=== PATIENT | male | born 1985 | race Two or more races ===

== ENCOUNTER 2021-11-23 15:26 | Outpatient (REF) | payer OTHER, SELFPAY ==
[2021-11-23 16:23] LABS: Alanine Aminotransferase 15 U/L (0-40); Albumin Level 4.5 g/dL (3.5-5.0); Alkaline Phosphatase 76 U/L (39-117); Aspartate Amino Transferase 16 U/L (5-37); Bilirubin Direct < 0.2 mg/dL (0.0-0.5); Bilirubin Total 0.3 mg/dL (0.0-1.0); Total Protein 7.1 g/dL (6.5-8.0)
[2021-11-23 16:28] LABS: Valproate 23.5 mcg/mL (50.0-100.0)
== END 2021-11-23 15:27 | disposition home or self-care (01) ==
LOC: HO.LAB 15:26
PROVIDERS: Visit Provider Psychiatry & Neurology Neurology
DX: G40.909 Epilepsy, unspecified, not intractable, without status epilepticus (principal); Z79.899 Other long term (current) drug therapy
CPT/HCPCS: 36415; 80076; 80164

== ENCOUNTER 2025-02-12 12:34 | Outpatient (AMB) | payer OTHER, SELFPAY ==
--- OUTSIDE RECORDS SUMMARY | 2023-12-27 12:26 | XMS_ITS | Encounter Summary ---
Author Organization [facility] Address [address] [place] [address] Care Team Providers Care Child Care Associate Name Role Phone Unavailable Primary Care Provider Unavailabl e Encounter Details Date Type Department Care Team (Latest Contact Info) Description 12/27/2023 1:26 PM EDT Hospital Encounter TH HISTORIC ENCOUNTERS EASTERN CONVERSION ONLY Tiffany Xie MD [address], [place] [id number] Other specified deforming dorsopathies, lumbar region Social History Tobacco Use Types Packs/Day Years Used Date Smoking Tobacco: Never Assessed Sex and Gender Information Value Date Recorded Sex Assigned at Not on file Legal Sex Male 8:13 PM EST Gender Identity Not on file Sexual Orientation Not on file documented as of this encounter Plan of Treatment Not on file documented as of this encounter Procedures Procedure Name Priority Date/Time Associated Diagnosis Comments CR SPINE LUMBAR W OBLIQ MIN 4V Routine 12/27/2023 2:45 PM EDT Other specified deforming dorsopathies, lumbar region documented in this encounter Results * CR SPINE LUMBAR W OBLIQ MIN 4V (12/27/2023 2:45 PM EDT) Anatomical Region Laterality Modality Radiographic Lily ging 12/27/2023 1:35 PM EDT Narrative 12/27/2023 2:45 PM EDT [facility] Diagnostic Imaging Department [address], [place] [id number] Patient: ALESSANDRO BURTON /Age/Sex: 1985 - 38 - M Unit#: [id number] Location/Status: SPDIGEN/REG CLI Mnemonic/Ordering Site: SPINLUMWOB/SPDI Ordering Physician: TIFFANY XIE MD CR Spine Lumbar W Obliq min 4v - 12/27/23 - 1402 Report Status:Signed EXAMINATION: LUMBAR SPINE CLINICAL INFORMATION: Pain for 7 days. No history of trauma COMPARISON: None. TECHNIQUE: Frontal, lateral, both oblique views of the lumbar spine and coned down view of the lumbosacral junction FINDINGS: There are 5 intact lumbar type vertebrae. No fracture, suspicious focal lesion or significant loss of volume. The pedicles appear intact. There is no pars defect. The disc spaces appear maintained. No significant osteophyte. Convex right lumbar curve. No suspicious paraspinal abnormality IMPRESSION: Lumbar curve without fracture, subluxation or focal lesion. No significant disc narrowing Dictating Physician: Roberto CUMMINS BRET MD Electronically Signed by: Roberto CUMMINS BRET MD Dic Date/Time: 12/27/23 1443 Sign date/Time: 12/27/23 1445 Procedure Note En Cummins MD - 01/23/2024 [facility] Diagnostic Imaging Department [address] [place], [place] [id number] Patient: ALESSANDRO BURTON /Age/Sex: 1985 - 38 - M Unit#: [id number] Location/Status: SPDIGEN/REG CLI Mnemonic/Ordering Site: SPINLUMWOB/SPDI Ordering Physician: TIFFANY XIE MD CR Spine Lumbar W Obliq min 4v - 12/27/23 - 1402 Report Status:Signed EXAMINATION: LUMBAR SPINE CLINICAL INFORMATION: Pain for 7 days. No history of trauma COMPARISON: None. TECHNIQUE: Frontal, lateral, both oblique views of the lumbar spine and coned downview of the lumbosacral junction FINDINGS: There are 5 intact lumbar type vertebrae. No fracture, suspicious focallesion or significant loss of volume. The pedicles appear intact. There is nopars defect. The disc spaces appear maintained. No significant osteophyte.Convex right lumbar curve. No suspicious paraspinal abnormality IMPRESSION: Lumbar curve without fracture, subluxation or focal lesion. No significantdisc narrowing Dictating Physician: Roberto CUMMINS BRET MD Electronically Signed by: Roberto CUMMINS BRET MD Dic Date/Time: 12/27/23 1443 Sign date/Time: 12/27/23 1445 Tiffany Xie MD IMG XR PROCEDURES Final Re sult documented in this encounter Visit Diagnoses Diagnosis Other specified deforming dorsopathies, lumbar region documented in this encounter
--- NOTE | 2025-02-12 12:24 | MHC.OFFVIS ---
Intake Visit Reasons: 1 yr sz Allergies No Known Allergies Allergy (Verified 11/05/24 08:18) Medication List - Last Reconciled 02/12/25 by Kayli Epstein MD HPI Comments Details: This is a 39-year-old man with a history of epilepsy. He has had seizures for about 10 years in which he passes out, bites his tongue and shakes all over and then is sore all over for a few days at a time. He was being treated in [place] and has had previous scans of the brain and EEG and was on Depakene 200 mg twice a day for 4 years. 5 years ago the doctor in [place] told him that the tests look normal and that he did not need to continue his medicines. He was irregular taking it in any case. He was told to make sure that he does not take stimulants and gets enough sleep. He notices that if he does not get 8 hours or more asleep he can have a seizure. He cannot give me an exact count of his seizures since he came off the medicine because of some language restrictions. Last Sz was in August 2021. He has had 2 seizures or major convulsive seizure and one that was milder. He still continues to drive and has 3 small children who he drives around. His does not drive. His recent EEG done on October 05, 2023 shows generalized epileptiform discharges, some of which seemed to originate in the right hemisphere. He is currently on Depakote 250mg 2 hs. He colindres sdeveliped some pancreatic problems in the spring and was told he has Crohn's disease in October and is being treated with infusions. They have suggested that the Depakote be changed to another AED. [facility] Medical History (Updated 02/12/25 @ 12:30 by Kayli Epstein MD) Anxiety Seizure disorder Review of Systems Const Details: Sleep:? Difficulty getting to sleep?denies.? Difficulty maintaining sleep?admits.? Urge to move legs?denies.? Teeth grinding?admits.? Shouting or Kicking during sleep?denies.? Abnormal behavior during sleep?denies.? Excessive sleep?denies.? Snoring?denies.? Daytime sleepiness?denies.? ?? General/Constitutional:? Change in appetite?denies.? Chills?denies.? Fatigue?denies.? Fever?denies.? Weight gain?denies.? Weight loss?denies.? ?? Ophthalmologic:? Blurred vision?denies.? Diminished visual acuity?denies.? ?? ENT:? Stuffiness?denies.? Decreased hearing?denies.? Dry mouth?denies.? Ear pain?denies.? Nosebleed?denies.? Ringing in the ears?denies.? Sinus pain?denies.? Sore throat?denies.? Swollen glands?denies.? ?? Endocrine:? Cold intolerance?denies.? Excessive thirst?denies.? Frequent urination?denies.? Heat intolerance?denies.? ?? Respiratory:? Shortness of breath?denies.? Chest pain?denies.? Cough?denies.? ?? Breast:? Breast lump?denies.? Nipple discharge?denies.? ?? Cardiovascular:? Chest pain at rest?denies.? Chest pain with exertion?denies.? Claudication?denies.? Dizziness?denies.? Fluid accumulation in the legs?denies.? Irregular heartbeat?denies.? Palpitations?denies.? ?? Gastrointestinal:? Abdominal pain?denies.? Constipation?denies.? Diarrhea?denies.? Difficulty swallowing?denies.? Heartburn?denies.? Nausea?denies.? Rectal bleeding?denies.? ?? Hematology:? Easy bruising?denies.? Prolonged bleeding?denies.? ?? Genitourinary:? Frequent urination?denies.? Urgency?denies.? Incontinence?denies.? Erectile Dysfunction?denies.? ?? Musculoskeletal:? Neck pain?admits.? Back pain?admits.? Muscle aches?admits.? Painful joints?admits.? Sciatica?denies.? Weakness?denies.? ?? Podiatric:? Difficulty walking?denies.? Foot numbness?denies.? ?? Neurologic:? Difficulty swallowing?denies.? Balance difficulty?admits.? Coordination?normal.? Difficulty speaking?denies.? Dizziness?admits.? Fainting?admits.? Gait abnormality?denies.? Headache?denies.? Loss of strength?denies.? Loss of use of extremity?denies.? Low back pain?denies.? Memory loss?denies.? Seizures?admits.? Tics?denies.? Tingling/Numbness?denies.? Transient loss of vision?denies.? Tremor?denies.? ?? Psychiatric:? Anxiety?denies.? Auditory/visual hallucinations?denies.? Delusions?denies.? Depressed mood?denies.? Stressors?denies.? Substance abuse?denies.? Suicidal thoughts?denies.? ? Physical Exam Neuro Other: Neurological: ? Abnormal neurological findings:?slight tremors of extended upper extremities.? Mental Status:?alert and oriented X 3,?Normal attention, orientation, memory and affect.? Cranial Nerves:?Pupils are equal, round and reactive to light. Fundoscopy shows normal disc bilaterally. External occular muscles are intact. Visual wilson are full, no ptosis. Face is symmetrical, no facial weakness or droop. Facial sensations are normal. Tongue protrudes in midline. Palate elevates symmetrically. Shoulder shrugging is normal..? Motor Examination:?Normal muscle tone, bulk and strength,?No atrophy or fasciculations,?No drift of the extended upper extremities,?Deep tendon reflexes are 2+?,?Plantars are flexor?.? Straight Leg Raising:?90 degrees.? Sensory Exam:?Normal light touch, temperature, pinprick, vibration and joint-position sensations?,?Rhomberg sign is absent.? Coordination:?no ataxia,?no titubation,?gubxkl-[id number], qqjj-akfd-zutq test and rapid alternating movements were normal.? Gait Exam:?Within normal limits.? Cerebellar Signs:?[id number]-cy-lwpz and vxdm-ob-btdh is normal,?no dysdiadochokinesia?.? Extrapyramidal System:?No tremor, rigidity with normal facial expressions,?No bradykinesia, no bradyphrenia. Normal arm swing and posture. No propulsion or retropulsion.? Speech:?Normal,?no dysphasia or dysarthria..? Mini Mental Status Exam: ? Level of Consciousness:?Alert.? Orientation:?Knows correct year, month, date, day and season,?Knows correct city, county and state. Knows correct location and floor.? Registration:?Able to register 3 objects.? Attention:?Serial 7's performed accurately.? Recall:?Able to recall 3 out of 3 objects.? Language:?Normal spontaneous speech, fluency, repetition,naming, comprehension, reading and writing.? Total Score:?30/30.? Assessment & Plan Assessment & Plan (1) Seizure disorder: Comment: 2018 MRI brain normal. 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 Code(s): G40.909 - Epilepsy, unspecified, not intractable, without status epilepticus Category: Medical (2) Anxiety: Code(s): F41.9 - Anxiety disorder, unspecified Category: Medical Plan He will taper off his Depakote because of the concerns about the pancreas. He will start levetiracetam 500 mg b.i.d.. Medications: New levetiracetam 500 mg PO BID 180 tabs 3RF 90 days Coding Level of Care Code Est Pt Level 4 (03572) Diagnoses Seizure disorder G40.909 Anxiety F41.9
--- OUTSIDE RECORDS SUMMARY | 2025-02-12 23:49 | XMS_ITS | Clinical Summary ---
Author Organization [facility] Address [address] [place] [address] Phone Care Team Providers Care Ctrs Name Role Phone Pillo Souza Primary Care Provider [phone] Social History Tobacco Use Types Packs/Day Years Used Date Smoking Tobacco: Never Assessed Sex and Gender Information Value Date Recorded Sex Assigned at Not on file Legal Sex Male 8:13 PM EST Gender Identity Not on file Sexual Orientation Not on file Plan of Treatment Health Maintenance Due Date Last Done Comments Hepatitis B Vaccines (1 of 3 - 19+ 3-dose series) 2005 HPV Vaccines (1 - 3-dose SCD M series) 2013 HIV Screening 02/26/2022 Social Influencers of Health Screening 02/26/2022 Depression Screening 03/27/2024 COVID-19 Vaccine (1 - 2024-2 6 season) 2024 Influenza Vaccine (#1) 2024 01/20/2022 Cholesterol Screening (Lipid Panel) 06/04/2029 06/04/2024, 02/03/2021 DTaP,Tdap,and Td Vaccines (2 - Td or Tdap) 01/21/2032 01/20/2022 RSV Immunization Adult Patients (1 - 1-dose 75+ series) 2061 Hepatitis C Screening Completed 02/03/2021 HIB Vaccines Aged Out No longer eligi ble based on patient's age to complete this topic Hepatitis A Vaccines Aged Out No long er eligible based on patient's age to complete this topic IPV Vaccines Aged Out No longer eligi ble based on patient's age to complete this topic MMR Vaccines Aged Out No longer eligi ble based on patient's age to complete this topic Meningococcal ACWY Vaccine Aged Out N o longer eligible based on patient's age to complete this topic Meningococcal B Vaccine Aged Out No l onger eligible based on patient's age to complete this topic Pneumococcal Vaccine: Pediatrics (0 to 5 Years) and At-Risk Patients (6 to 49 Years) Aged Out No longer eligible b ased on patient's age to complete this topic RSV Immunization Patients Under 20 months Aged Out No longer eligible b ased on patient's age to complete this topic Varicella Vaccines Aged Out No longer eligible based on patient's age to complete this topic Insurance MEDICAID - [place] Care Teams Ctrs Relationship Specialty Start Date End Date Pillo Souza PA [address] [place] [address] PCP - General Physician Patient Registration Manager 06/14/24
--- OUTSIDE RECORDS SUMMARY | 2025-02-12 23:49 | XMS_ITS | Clinical Summary ---
Author Organization [facility] Address [address] [place] [address] Care Team Providers Care Lead Refinery Supervisor Name Role Phone Unavailable Primary Care Provider Unavailabl e Social History Tobacco Use Types Packs/Day Years Used Date Smoking Tobacco: Never Assessed Sex and Gender Information Value Date Recorded Sex Assigned at Not on file Legal Sex Male 9:20 PM EDT Gender Identity Not on file Sexual Orientation Not on file Plan of Treatment Health Maintenance Due Date Last Done Comments Depression Screening 1985 Lipid Panel 1985 SDOH Screening 1985 Disability Screening 1985 Alcohol/Substance Use Screening 1998 Tobacco Screening 1998 Family Planning (PISQ) 2001 HPV Vaccines (1 - Male 3-dos e series) 2001 Hepatitis C Screening 2004 Hepatitis B Vaccines (1 of 3 - 19+ 3-dose series) 2005 COVID-19 Vaccine (1 - 2024-2 6 season) 2024 Influenza Vaccine (#1) 2024 01/20/2022 DTaP/Tdap/Td Vaccines (2 - T d or Tdap) 01/21/2032 01/20/2022 Zoster Vaccines (1 of 2) 2036 RSV Patients and Pa tients Aged 60 years or older (1 - 1-dose 75+ series) 2061 HIV Screening Completed 02/03/2021 HIB Vaccines Aged Out [...] patient's age to complete this topic Meningococcal Vaccine Aged Out No bassam cierra eligible based on patient's age to complete this topic Pneumococcal Vaccine: Pediat rics (0 to 5 Years) and At-Risk Patients (6 to 49) Years Aged Out No longer eligi ble based on patient's age to complete this topic RSV under 20 months Aged Out No longe r eligible based on patient's age to complete this topic Rotavirus Vaccines Aged Out No longer eligible based on patient's age to complete this topic
== END 2025-02-12 14:41 | disposition home or self-care (01) ==
LOC: HO.HSM 12:34
PROVIDERS: PCP Internal Medicine; Visit Provider Psychiatry & Neurology Neurology
DX: G40.909 Epilepsy, unspecified, not intractable, without status epilepticus (principal); F41.9 Anxiety disorder, unspecified
CPT/HCPCS: 99214

== ENCOUNTER → 2025-02-12 12:34 | Outpatient (BNVA) | payer MEDICAID, SELFPAY | PROVIDERS: PCP Internal Medicine; Visit Provider Psychiatry & Neurology Neurology | DX: G40.909 Epilepsy, unspecified, not intractable, without status epilepticus (principal); F41.9 Anxiety disorder, unspecified | CPT/HCPCS: 99212 ==